=== PATIENT | female | born 1970 | race Caucasian/White ===

== ENCOUNTER 2020-05-12 09:56 | Outpatient (REF) | payer BC, SELFPAY ==
--- NOTE | 2020-05-12 09:00 | PAPFT_PTH ---
PATIENT: Shantel Adams LOC: [facility] U#:[id number] AGE/SX: 50/F ROOM: RE05/12/[address]: AYAZ Sanchez : 1970 BED: DIS: 05/12/2020 SPEC #: [id number] RECD: 05/12/20 12:54 STATUS: PRATIK REQ #: [id number] ZACKERY: 05/12/20 09:[address]: Rachel Zelaya DEPT: [facility] Cytology RECD BY: Alexandria Flood ENTERED: 05/12/20 12:54 SP TYPE: PAPFT HEIDI DR: Pepe Kline MD Tissues: 1 - CX/ENDOCX FOR PAP SMEARS Procedures: PAP THIN PREP/UVM Screening HPV DNA PROBE Comments: [id number]
[2020-05-13 15:03] LABS: Chlamydia Result Negative (Negative); GC Result Negative (Negative)
== END 2020-05-12 10:16 ==
LOC: LBN 09:56
PROVIDERS: PCP Family Medicine; Visit Provider Nurse Practitioner Family
DX: Z11.3 Encounter for screening for infections with a predominantly sexual mode of transmission (principal); Z12.4 Encounter for screening for malignant neoplasm of cervix; Z11.51 Encounter for screening for human papillomavirus (HPV)
CPT/HCPCS: 87491; 87591; 88142; 87624

== ENCOUNTER 2020-06-03 03:27 | Outpatient (CLI) | payer BC, SELFPAY ==
--- NOTE | 2020-06-03 07:30 | DI.MAMMO_ITS ---
EXAM: MG MAMMO SCREENING CLINICAL HISTORY: screening TECHNIQUE: Mammograms were interpreted according to the usual protocol including computer analysis w [employer] CAD system, tomosynthesis and C-view imaging. COMPARISON: FINDINGS: Breasts are extremely dense bilaterally. No dominant mass or microcalcification is identified in eit her breast. Current examination is compared with previous examinations including July 2017 and t here has been no gross interval change appearance comparison previous studies. IMPRESSION: No specific evidence of malignancy at this time. Routine screening examinations are suggested at yea rly intervals due to the family history of breast carcinoma. BI-RADS Cat 1 - Negative Breast Density - Category D - Extremely dense
== END 2020-06-03 03:47 ==
PROVIDERS: Visit Provider Nurse Practitioner Family
DX: Z12.31 Encounter for screening mammogram for malignant neoplasm of breast (principal); Z80.3 Family history of malignant neoplasm of breast; R92.2 Inconclusive mammogram
CPT/HCPCS: 77063; 77067

== ENCOUNTER 2021-07-28 00:38 | Outpatient (CLI) | payer BC, SELFPAY ==
--- NOTE | 2021-07-28 07:30 | DI.MAMMO_ITS ---
Exam(s) MAMMO SCREENING EXAM: MAMMO SCREENING CLINICAL HISTORY: screening TECHNIQUE: Mammograms were interpreted according to the usual protocol including computer analysis w [employer] CAD system, tomosynthesis and C-view imaging. COMPARISON: FINDINGS: The breasts are extremely dense. No dominant mass or clumped microcalcification is identified in eit her breast. The current examination is compared with previous examinations including May 2020 and there is question of interval development of an area of partially obscured lobulated nodularity p rojected in the central portion of the right breast on CC and MLO views. Additional mammographic vie ws are requested to include CC and MLO spot compression views of the right breast. Right breast ultr asound is also recommended. Considering the extreme radiodensity of the breasts and the strong family history of breast carcinoma , screening ultrasound of both breasts is also recommended. Screening MR examination of the breasts may also be considered. IMPRESSION: Additional mammographic views of the right breast and right breast ultrasound recommended as describe d above to evaluate possible new mass. Bilateral screening breast ultrasound also recommended due to high breast density and family history of breast carcinoma. BI-RADS Category 0 - Assessment Incomplete: Need additional imaging evaluation Breast Density - Category D - Extremely dense
== END 2021-07-28 00:58 ==
PROVIDERS: Visit Provider Nurse Practitioner Family
DX: Z12.31 Encounter for screening mammogram for malignant neoplasm of breast (principal); R92.8 Other abnormal and inconclusive findings on diagnostic imaging of breast
CPT/HCPCS: 77063; 77067

== ENCOUNTER 2021-08-15 00:54 | Outpatient (CLI) | payer BC, SELFPAY ==
--- NOTE | 2021-08-15 | DI.US_ITS ---
Exam(s) US BREAST LT COMPLETE MG MAMMO SCREEN CALL BACK UNI US BREAST RT COMPLETE EXAM: MG MAMMO SCREEN CALL BACK UNI and bilateral complete breast ultrasound CLINICAL HISTORY: F/U MAMMO, ? NEW NODULARITY,RADIODENSE BREASTS,? NEW MASS. TECHNIQUE: Craniocaudal and mediolateral oblique Full Field Digital Mammography views of the right b reast with Computer Aided Diagnosis followed by Tomosynthesis and bilateral breast ultrasound. COMPARISON: Comparison is made with prior examinations. FINDINGS: Mammography/Tomosynthesis: Masses/Architectural Distortion: The area of concern in the right breast is less well visualized on t he additional views. Microcalcifictions: No suspicious pleomorphic-type are seen. Skin Thickening/Nipple Retraction: None. Bilateral breast US: Echotexture: Normal appearance of the glandular tissue. Shadowing: No suspicious foci. Cyst: There are bilateral cysts present several of which contain internal debris. The largest on the left is at the 8 o'clock position 2 cm from the nipple and measures 0.8 x 0.3 x 0.7 cm. There is a cluster of cysts at the 2 o'clock position of the right breast 2 cm from the nipple. There is a cyst at the 2 o'clock position of the right breast 2 cm from the nipple which measures 1.0 x 0.4 x 0.6 cm . It does contain vascular soft tissue along its posterior aspect. It does not meet the criteria fo r simple cyst. Solid lesions: None seen. Ductal dilation: None. IMPRESSION: 1. Complex cystic and solid lesion at the 2 o'clock position of the right breast 2 cm from the nipple . 2. Biopsy is recommended for further evaluation of this lesion. 3. Findings were discussed with the patient and Dr. Jackson on the date of the examination. BI-RADS Category 4 - Suspicious Abnormality: Biopsy should be considered Breast Density - Category D - Extremely dense Breast density Category C or D implies that the patient has dense breast tissue. Dense breast tissue can make it harder to find cancer on a mammogram. Dense breast tissue is also associated with an incr eased risk of breast cancer. This information about the result of the mammogram report was provided to the patient to raise their awareness. Use this report when you speak with the patient about their risks for breast cancer, which includes their family history. At that time, you may recommend additional screening tests (Ultrasoun d or MRI) as these tests may add significant information. A negative radiographic report should not delay biopsy if a dominant or clinically suspicious mass is present. Up to ten percent of cancers are not identified on mammography. A negative report may reinforce clinical impression. Adenosis and dense breasts may obscure an underlying neoplasm. False positive reports average 6 to 10%. Patient will receive a letter notifying them of these results.
== END 2021-08-15 01:14 ==
PROVIDERS: Visit Provider Nurse Practitioner Family
DX: R92.8 Other abnormal and inconclusive findings on diagnostic imaging of breast (principal)
CPT/HCPCS: 76642; 77063; 77067

== ENCOUNTER 2021-08-29 01:52 | Outpatient (CLI) | payer BC, SELFPAY ==
--- NOTE | 2021-08-29 | DI.US_ITS ---
Exam(s) US NEEDLE LOCAL BREAST WO RAD EXAM: RT BREAST MASS COMPARISON: Comparison made with prior examinations. TECHNIQUE: Ultrasound performed using standard protocol. FINDINGS: Sonography was provided for Dr. Eden during the performance of a right breast biopsy. Please ref er to the procedure report for complete details. DATA REPOSITORY:
--- NOTE | 2021-08-29 14:10 | BREAST_PTH ---
PATIENT: Shantel Adams LOC: [facility] U#:[id number] AGE/SX: 51/F ROOM: RE08/29/[address]: Elizabeth Eden MD : 1970 BED: DIS: 08/29/2021 SPEC #: [id number] RECD: 08/29/21 17:13 STATUS: PRATIK RECara #: [id number] ZACKERY: 08/29/21 14:[address]: Elizabeth Eden DEPT: Surgical Specimen RECD BY: Alexandria Flood ENTERED: 08/29/21 17:13 SP TYPE: Breast OTHR DR: Kera Pena APRN Tissues: 1 - BREAST BX NEEDLE Procedures: GROSS AND MICRO LEVEL 4 Comments: [id number]
--- NOTE | 2021-08-29 14:23 | W.PROCNOTE ---
Procedure Note Date of procedure: 08/29/21 Procedure: US guided Right Breast lesion Core needle biopsy Surgeon/Proceduralist/Physician: Elizabeth Eden Procedure Diagnosis: Suspicious Right Breast lesion Procedure Indications: Suspicious lesion and family history of Breast cancer in 2 sisters and maternal aunt. Patient was negative for BRCA 1 and 2 gene Procedure Description: Pre-op Dx: Right Breast Mass Post-op Dx: same Procedure: US guided Right Breast Lesion Core needle biopsy Surgeon: Jaylen Eden MD Anesthesia: Local anesthesia with 1% Lidocaine Blood loss: 2 cc Specimen: Core needle biopsy Complications: no immediate complications Procedure: After informed consent was obtained the patient was placed in a supine position. Us was done of the Breast and the lesion was localized by the US tech. The skin was cleaned with alcohol and infiltrated with the above local anesthetic. The skin was then prepped. An incision was made with an 11 blade. Using a 14 gauge core needle 2 specimens were removed and placed on telfa and placed in formalin. Under US guidence a small clip was placed into the area of the lesion. The lesion did disappear after the biopsies were done. The skin was cleaned and dried and a band aid was applied. The patient tolerated the procedure well and there were no immediate complications.
== END 2021-08-29 02:12 ==
PROVIDERS: Visit Provider Surgery
DX: N60.81 Other benign mammary dysplasias of right breast (principal); N60.31 Fibrosclerosis of right breast; Z80.3 Family history of malignant neoplasm of breast
CPT/HCPCS: 19083; 88305; 76942

== ENCOUNTER 2022-12-19 01:37 | Outpatient (CLI) | payer BC, SELFPAY ==
--- NOTE | 2022-12-19 08:00 | DI.MAMMO_ITS ---
Exam(s) MAMMO SCREENING EXAM: MAMMO SCREENING CLINICAL HISTORY: screening,Z12.39. TECHNIQUE: Bilateral full field digital CC and MLO mammographic images were obtained with 3D tomosyn thesis and utilizing computer aided detection (CAD). COMPARISON: 2013 through 2020 FINDINGS: Right breast: Masses/Architectural Distortion: None seen. Biopsy marker clip seen in the medial rig ht breast. Microcalcifications: No suspicious pleomorphic-type are seen. Skin Thickening/Nipple Retraction: None. Left: Question of an area of architectural distortion in the lower outer quadrant with associated dickson cifications. Spot magnification views were requested for further evaluation. Ultrasound may also be indicated at that time. IMPRESSION: 1. Right breast: No significant interval change with no specific features of malignancy noted. 2. Left breast: Question of architectural distortion with associated calcifications. Spot magnificat ion views are requested for further evaluation. BI-RADS Category 0 - Assessment Incomplete: Need additional imaging evaluation Breast Density - Category D - extremely dense Breast Density Category D: The mammogram demonstrates the patient's breast tissue is dense. Dense manny ast tissue is very common and is not abnormal but dense breast tissue can make it harder to find canc er on a mammogram. Also, dense breast tissue may increase their breast cancer risk. This information about the result of the mammogram report was provided to the patient to raise their awareness. Use th is report when you speak with the patient about their risks for breast cancer, which includes their f amily history. At that time, you may recommend for more screening tests (Ultrasound or MRI) as they m ight be useful based on their risk. A negative radiographic report should not delay biopsy if a dominant or clinically suspicious mass is present. Up to ten percent of cancers are not identified on mammography. A negative report may reinforce clinical impression. Adenosis and dense breasts may obscure an underlying neoplasm. False positive reports average 6 to 10%.
== END 2022-12-19 01:57 ==
LOC: DI 01:37
PROVIDERS: PCP Student in an Organized Health Care Education/Training Program; Visit Provider Obstetrics & Gynecology Gynecology
DX: Z12.31 Encounter for screening mammogram for malignant neoplasm of breast (principal); R92.8 Other abnormal and inconclusive findings on diagnostic imaging of breast
CPT/HCPCS: 77063; 77067

== ENCOUNTER 2022-12-27 00:59 | Outpatient (CLI) | payer BC, SELFPAY ==
--- NOTE | 2022-12-27 14:00 | DI.MAMMO_ITS ---
Exam(s) MG MAMMO SCREEN CALL BACK UNI US BREAST LT COMPLETE EXAM: MAMMO SCREEN CALL BACK UNI CLINICAL HISTORY: ? ARCHITECTURAL DISTORTION LOWER OUTER QUADRANT, LT, WITH CALCIFICATIONS. TECHNIQUE: Craniocaudal and mediolateral oblique spot compression magnification views and spot compr ession views of the left breast followed by Tomosynthesis and left breast ultrasound. COMPARISON: 2013 through 2020 FINDINGS: Mammography/Tomosynthesis: Masses/Architectural Distortion: None seen. Microcalcifictions: No suspicious pleomorphic-type are seen. There are few loosely clustered tiny ca lcifications Skin Thickening/Nipple Retraction: None. Left breast US: Echotexture: Normal appearance of the glandular tissue. Shadowing: No suspicious foci. Cyst: A few small cysts are noted. Solid lesions: 2 lymph nodes are noted in the 7 o'clock position 1 - 2 cm from the nipple Ductal dilation: None. IMPRESSION: 1. No evidence of malignancy is noted. 2. The findings were discussed with the patient on the date of the examination. BI-RADS Category 3 - 6 month - Probably Benign Finding: Recommend follow-up mammography and ultrasoun d in 6 months Breast Density - Category D - Extremely dense A mammogram that demonstrates density of C or D indicates the patient's breast tissue is dense. Dense breast tissue is very common and is not abnormal, but dense breast tissue can make it harder to find cancer on a mammogram. Also, dense breast tissue may increase their breast cancer risk. This informa tion about the result of the mammogram report was provided to the patient to raise their awareness. U se this report when you speak with the patient about their risks for breast cancer, which includes th eir family history. At that time, you may recommend for more screening tests (Ultrasound or MRI) as t hey might be useful based on their risk. A negative radiographic report should not delay biopsy if a dominant or clinically suspicious mass is present. Up to ten percent of cancers are not identified on mammography. A negative report may reinforce clinical impression. Adenosis and dense breasts may obscure an underlying neoplasm. False positive reports average 6 to 10%. Patient will receive a letter notifying them of these results.
== END 2022-12-27 01:19 ==
LOC: DI 01:00
PROVIDERS: PCP Student in an Organized Health Care Education/Training Program; Visit Provider Obstetrics & Gynecology Gynecology
DX: R92.8 Other abnormal and inconclusive findings on diagnostic imaging of breast (principal)
CPT/HCPCS: 76642; 77063; 77067

== ENCOUNTER → 2023-06-28 03:05 | Outpatient (CLI) | payer BC, SELFPAY ==
--- NOTE | 2023-06-28 14:30 | DI.MAMMO_ITS ---
Exam(s) MG MAMMO DIAGNOSTIC UNI EXAM: MAMMO DIAGNOSTIC UNI CLINICAL HISTORY: F/U MAMMO, 6 MO F/U, R92.8 TECHNIQUE: Left cc and MLO mammogram images were performed according to the usual protocol includin g computer analysis with CAD system, tomosynthesis and C-view imaging. Additional cc and MLO spot ma gnification views. COMPARISON: US US BREAST LT COMPLETE from 12/27/2022 FINDINGS: The the left breast is composed of extremely dense fibroglandular tissue, breast density category D. There has been no change in the calcifications in the inferior left breast. No visible mass. No skin thickening or abnormal axillary lymph nodes are seen. IMPRESSION: BI-RADS Cat 2 - Benign Findings Bilateral screening mammography is recommended, due in 6 months. Breast Density - Category D - Extremely dense fibroglandular tissue which decreases the sensitivity o f the mammogram and may obscure underlying lesions.. A negative radiographic report should not delay biopsy if a dominant or clinically suspicious mass is present. Up to ten percent of cancers are not identified on mammography. A negative report may reinforce clinical impression. Adenosis and dense breasts may obscure an underlying neoplasm. False positive reports average 6 to 10%. Patient will receive a letter notifying them of these results.
== END ==
PROVIDERS: PCP Student in an Organized Health Care Education/Training Program; Visit Provider Obstetrics & Gynecology Gynecology
DX: Z12.31 Encounter for screening mammogram for malignant neoplasm of breast (principal); R92.8 Other abnormal and inconclusive findings on diagnostic imaging of breast
CPT/HCPCS: 77061; 77065; G0279

== ENCOUNTER 2023-07-08 18:33 | Outpatient (REF) | payer BC, SELFPAY | END 2023-07-08 18:34 | disposition home or self-care (01) | LOC: LBN 18:33 | PROVIDERS: PCP Student in an Organized Health Care Education/Training Program; Visit Provider Nurse Practitioner Family | DX: N30.01 Acute cystitis with hematuria (principal) | CPT/HCPCS: 87086 ==

== ENCOUNTER 2025-05-12 14:51 | Outpatient (CLI) | payer BC, SELFPAY ==
--- NOTE | 2025-05-12 08:15 | DI.MAMMO_ITS ---
Exam(s) MAMMO SCREENING EXAM: MAMMO SCREENING CLINICAL HISTORY: screening,Z12.39 TECHNIQUE: Bilateral full field digital CC and MLO mammographic images were obtained with 3D tomosynthesis and utilizing computer aided detection (CAD). COMPARISON: Comparison is made with prior examinations. FINDINGS: Masses/Architectural Distortion: No suspicious masses or areas of architectural distortion are present. There is again seen a biopsy clip in the medial right breast which appears stable in location. Microcalcifications: No suspicious pleomorphic-type are seen. Skin Thickening/Nipple Retraction: None. IMPRESSION: 1. No significant interval change with no specific features of malignancy noted. 2. Unless there is more urgent need, screening mammography is recommended, as per [employer] guidelines. BI-RADS Category 1 - Negative Breast Density - Category D - The breast are extremely dense, which lowers the sensitivity of the mammography. Breast density Category C or D implies that the patient has dense breast tissue. Dense breast tissue can make it harder to find cancer on a mammogram. Dense breast tissue is also associated with an increased risk of breast cancer. This information about the result of the mammogram report was provided to the patient to raise their awareness. Use this report when you speak with the patient about their risks for breast cancer, which includes their family history. At that time, you may recommend additional screening tests (Ultrasound or MRI) as these tests may add significant information. A negative radiographic report should not delay biopsy if a dominant or clinically suspicious mass is present. Up to ten percent of cancers are not identified on mammography. A negative report may reinforce clinical impression. Adenosis and dense breasts may obscure an underlying neoplasm. False positive reports average 6 to 10%. Patient will receive a letter notifying them of these results.
== END 2025-05-12 15:11 ==
LOC: DI 14:55
PROVIDERS: PCP Family Medicine; Visit Provider Family Medicine
DX: Z12.31 Encounter for screening mammogram for malignant neoplasm of breast (principal); R92.343 Mammographic extreme density, bilateral breasts
CPT/HCPCS: 77063; 77067

== ENCOUNTER → 2025-08-04 02:05 | Outpatient (CLI) | payer BC, SELFPAY ==
--- NOTE | 2025-08-04 06:45 | DI.CT_ITS ---
Exam(s) CT THORAX CTA EXAM: CT THORAX CTA CLINICAL HISTORY: Strong family history of thoracic aortic aneurysm,z82.49. TECHNIQUE: Imaging Protocol: Axial CT angiography was performed with multi- slice acquisition and multi-planar reconstructions as well as axial, coronal and sagittal MIP reconstructions. Computer aided detection (CAD) was utilized. CONTRAST MATERIAL: Intravenous: Omnipaque 350 Contrast volume:100 ml COMPARISON: US US AAA SCREENING from 12/16/2024 FINDINGS: Pulmonary Arteries: No evidence of filling defect to suggest pulmonary emboli. Mediastinum and Adali: No dominant adenopathy or fluid collection. Pulmonary parenchyma: No consolidation or dominant measurable mass. Pleura: No effusion or pneumothorax. Heart: The heart is not dilated. No coronary artery calcifications are seen. No visible aortic valve or mitral valve calcifications. Aorta: The ascending thoracic aorta measures 3.4 cm in diameter. The descending aorta measures 2 cm in diameter. No dissection. No visible atherosclerotic changes. Upper abdomen: No acute findings. Bones: Unremarkable for age. Tubes, Catheters, and Lines: None Soft tissues: Unremarkable. IMPRESSION: Mild dilatation of the ascending aorta to 3.4 cm compared to 2 cm of the descending aorta. RADIATION DOSE DELIVERED: Total DLP DATA REPOSITORY: All CT scans at this facility are submitted to the National Radiology Data Registry (NRDR) Dose Index Registry (DIR) with the [employer] (ACR). RADIATION OPTIMIZATION: All CT scans at this facility use at least one of these dose optimization techniques: automated exposure control; mA and/or kV adjustment per patient size (includes targeted exams where dose is matched to clinical indication); or iterative reconstruction.
[2025-08-04] MEDS: Omnipaque 350 MG/ML 100 ML BTL IJ (09:21)
[2025-08-04] MEDS: Normal Saline - Diluent 50 ML VIAL IJ (09:21)
[2025-08-04] MEDS: Normal Saline Flush 10 ML SYR IVP (09:22)
== END ==
LOC: DI 02:05
PROVIDERS: PCP Family Medicine; Visit Provider Family Medicine
DX: Z82.49 Family history of ischemic heart disease and other diseases of the circulatory system (principal); I77.810 Thoracic aortic ectasia
CPT/HCPCS: 71275; J3490